=== PATIENT | female | born 1945 | race Caucasian/White ===

== ENCOUNTER → 2020-01-20 | Day surgery (SDC) | payer MEDICARE, BC ==
--- NOTE | 2020-01-19 21:10 | Pre-Procedure Note/Attestation ---
Pre-Procedure Note/Attestation Complete Prior to Procedure Planned Procedure: left - Removal of cataract and placement of intraocular lens, left eye Procedure Narrative: Removal of cataract and placement of intraocular lens, left eye Indications for Procedure Pre-Operative Diagnosis: Cataract, combined, left eye Attestation I attest that I discussed the nature of the procedure; its benefits; risks and complications; and alternatives (and the risks and benefits of such alternatives), prior to the procedure, with the patient (or the patient's legal counter sales representative). I attest that, if there was a reasonable possibility of needing a blood jin sfusion, the patient (or the patient's legal counter sales representative) was given the [facility] standardized written summary, pursuant to the Wilberto Briggs Blood Safety Act ([place] Health and Safety Code # 1645, as amended). I attest that I re-evaluated the patient just prior to the surgery and that there has been no change in the patient's H&P, except as documented below: Kris Osei MD Jan 19, 2020 21:10
[~2020-01-20] VITALS: Ht 160 cm; Wt 114.3 kg
[2020-01-20] VITALS (8 sets, daily range): BP systolic 102–131; BP diastolic 65–88
[~2020-01-20] MED LIST: ALLOPURINOL300 M1 ORAL; ATORVASTATIN CA10 MG ORAL; Akten 3.5% 1ml Btl ONE; B12 ACTIVE1000 MCG PO; BENAZEPRIL HCL10 MG ORAL; BSS 15ml BTL ONE; BSS 500ml btl ONE; COQ-10100 M1 PO; Ciprofloxacin Opth Soln 5ml ONE; EPINEPHrine 1mg/1ml Amp ONE; JANUMET 50-1,01 EACH ORAL; LR 1000ml 1,000 ML IVLG SCH; LR 1000ml ONE; Lidocaine 1% MPF 10mg/ml 5ml ONE; Lidocaine 4% Amp 5ml ONE; MAGNESIUM400 M2 PO; Maxitrol Opth Oint 3.5gm ONE; NS Irrig 1000ml ONE; Phenylephrine 10% Opth Soln 5ml ONE; Povidone-Iodine 5% opth solution ONE; SERTRALINE HCL25 MG ORAL; SPIRONOLACTONE100 MG ORAL; Sodium Hyaluronate 10 mg/ml 0.85ml ONE; Sterile Water Irrig 1000ml IRRIG ONE; Tetracaine 0.5% Opth 4ml Soln ONE; Tobradex Opth Susp 2.5ml ONE; Tropicamide 1% Opth 15ml Soln ONE; VITAMIN D325 MC1 PO; XANAX0.25 MG ORAL; fentaNYL 100 mcg/2 mL IV ONE; prednisoLONE acetate 1% Opth Susp 1ml ONE
[2020-01-20] MEDS: Tobradex Opth Susp 2.5ml LEFT EYE SCH ×3 (08:39→09:03)
[2020-01-20] MEDS: Cyclopentolate 2% Opth Sol LEFT EYE SCH ×3 (08:39→09:03)
[2020-01-20] MEDS: Tropicamide 1% Opth 15ml Soln LEFT EYE SCH ×3 (08:39→09:02)
[2020-01-20] MEDS: Ciprofloxacin Opth Soln 5ml LEFT EYE SCH ×3 (08:39→09:02)
[2020-01-20] MEDS: Akten 3.5% 1ml Btl LEFT EYE SCH ×3 (08:40→09:02)
[2020-01-20] MEDS: Phenylephrine 10% Opth Soln 5ml LEFT EYE SCH ×3 (08:40→09:03)
--- NOTE | 2020-01-20 09:42 | Anethesia Preoperative Eval ---
Anesthesia Pre-op PMH/ROS General Date of Evaluation: Jan 20, 2020 Time of Evaluation: 09:38 Anesthesiologist: Edwin ASA Score: ASA 3 Mallampati Score Class I : Soft palate, uvula, fauces, pillars visible Class II: Soft palate, uvula, fauces visible Class III: Soft palate, base of uvula visible Class IV: Only hard plate visible Mallampati Classification: Class III Surgeon: Sae Diagnosis: L eye cataract Surgical Procedure: Cataract extraction Anesthesia History: none Family History: no anesthesia problems Allergies: Coded Allergies: WALNUT (Verified Adverse Reaction, Mild, "soarness in mouth", 01/19/20) Medications: see eMAR Patient NPO?: Yes Past Medical History Cardiovascular: Reports: HTN; Denies: CAD, [place], valve dz, arrhythmia, other Pulmonary: Reports: JAYNE; Denies: asthma, COPD, other Gastrointestinal/Genitourinary: Reports: GERD; Denies: CRI, ESRD, other Neurologic/Psychiatric: Reports: depression/anxiety; Denies: dementia, CVA, TIA, other Endocrine: Reports: DM, hypothyroidism; Denies: steroids, other HEENT: Denies: cataract (L), cataract (R), glaucoma, [place] (L), [place] (R), other Hematology/Immune: Denies: anemia, DVT, bleeding disorder, other Musculoskeletal/Integumentary: Reports: OA Other: obesity PMH Narrative: as above PSxH Narrative: see H&P Anesthesia Pre-op Phys. Exam Physician Exam Last Vital Signs Date Time Temp Pulse Resp B/P (MAP) Pulse Ox O2 Delivery O2 Flow Rate FiO2 01/20/20 08:46 97.2 89 18 131/88 97 Room Air Constitutional: NAD Neurologic: CN 2-12 intact Cardiovascular: RRR, no M/R/G Respiratory: CTA Gastrointestinal: other - morbid obesity Airway Exam Mallampati Score: Class III MO: limited Neck: short ROM: limited Teeth: missing Dentures: no upper, no lower Anesthesia Pre-op A/P Labs Chemistry Test 01/20/20 09:00 POC Whole Blood Glucose Pending Studies Pre-op Studies: EKG - SR Risk Assessment & Plan Assessment: ASA3 Plan: MAC Status Change Before Surgery: No Reagan Pineda MD Jan 20, 2020 09:42
--- NOTE | 2020-01-20 10:30 | Pre-op HX & Phy Repo 2 SIG ---
DATE OF ADMISSION: 01/20/2020 PRESURGICAL INTERNAL MEDICINE HISTORY AND PHYSICAL REASON FOR EVALUATION: I was asked by Dr. Kris Osei to see this 74-year-old female who is going for elective surgery on the left eye. The patient has nuclear sclerotic cataract, left eye. The patient was examined and chart was reviewed at [facility]. PAST MEDICAL HISTORY AND REVIEW OF SYSTEMS: Remarkable for hypertension, history of adult onset diabetes mellitus, sleep apnea, gout, obesity, and history of bladder cancer. No history of heart attack. No history of mitral valve leak. No renal failure. No anemia or thyroid problem. SURGICAL HISTORY: Umbilical hernia, cholecystectomy, and the right eye cataract, recent. FAMILY HISTORY: Mother from heart attack and father from complication of colon cancer. ALLERGIES: Walnuts. MEDICATIONS: Present medications include benazepril 5 mg, allopurinol, Janumet, and atorvastatin. The patient uses CPAP oxygen machine at home at night 1.5 L/minute. HABITS: The patient smoked 40 years ago for short period of time. Alcohol occasionally. No street drugs. PHYSICAL EXAMINATION: GENERAL: The patient is alert, overweight, elderly female. Weight 245 pounds and 5 feet 3.5 inches tall. VITAL SIGNS: Blood pressure 131/88, pulse 89, respirations 18. O2 saturation 97% on room air. SKIN: Dry, warm, clear. No rashes. No diaphoresis. LYMPHATICS: Lymph nodes not enlarged. HEENT: Head is normocephalic, atraumatic. Ears, clear. Eyes, full description per Dr. Kris Osei. Mouth has dentures, upper and low. NECK: Supple. No jugular venous distention. No palpable mass. CHEST: No deformity or asymmetry. LUNGS: Clear to auscultation and percussion. HEART: Sinus rate. No ectopy. No murmur. No S3 or S4. ABDOMEN: Soft, obese. Liver and spleen not enlarged. No rebound. EXTREMITIES: No edema. No varicose vein. No calf tenderness. GENITOURINARY: No dysuria. No CVA tenderness. NEUROLOGIC: No tremor. No nystagmus. DIAGNOSTIC DATA: EKG - sinus rhythm, ST-T wave abnormality. Laboratory, fasting blood sugar 105 g/dL. Rest of the laboratory pending. IMPRESSION: 1. Nuclear sclerotic cataract, left eye. 2. Type 2 diabetes, controlled. 3. Gout. 4. Hypertension, controlled. 5. Sleep apnea. 6. History of bladder cancer. 7. Obesity. PLAN: Cataract extraction, left eye with intraocular lens implant per Dr. Kris Osei. CONCLUSIONS: The patient is a 74-year-old female with multiple medical problems including diabetes which is controlled, hypertension also controlled. The patient is on CPAP machine at home for sleep apnea. The patient is obese. The patient did not eat or drink from last night. The patient's condition optimized for surgery. Thank you very much, Dr. Osei, for privilege to participate in presurgical care of this interesting patient. Carlee Ryan M.D. DR: JOSE JOB#: [id number] CC:
--- NOTE | 2020-01-20 11:10 | Discharge Instructions ---
Discharge Instructions Discharge Instructions Follow Up Orders Continue pre op eye drops Wear shield at all times except to place eye drops Followup tomorrow in Dr Osei's office For Congestive Heart Failure Reminder Report to your physician any weight gain of 5 pounds or more in one week. Kris Osei MD Jan 20, 2020 11:10
--- NOTE | 2020-01-20 11:13 | Brief Operative Note ---
Immediate Post Operative Note Operative Note Pre-op Diagnosis: Cataract, combined, left eye Procedure: Phaco PC IOL OS Post-op Diagnosis: same as pre-op Surgeon: Paulo Osei MD MS Nut Roaster Helper: none Anesthesiologist: Dr Pineda Anesthesia: local, MAC Specimen: none Complications: none Fluids: see chart Implant(s) used?: Yes - ZCB00 19.0 Kris Osei MD Jan 20, 2020 11:13
--- NOTE | 2020-01-20 11:14 | Immediate Post-Op Evaluation ---
Immediate Post-Op Evalulation Immediate Post-Op Evalulation Procedure: L eye cataract extraction with IOL Date of Evaluation: Jan 20, 2020 Time of Evaluation: 11:13 IV Fluids: 300 Blood Products: none Estimated Blood Loss: none Urinary Output: none Blood Pressure Systolic: 116 Blood Pressure Diastolic: 78 Pulse Rate: 86 Respiratory Rate: 20 O2 Sat by Pulse Oximetry: 98 Temperature (Fahrenheit): 97.6 Pain Score (1-10): 1 Nausea: No Vomiting: No Complications none Patient Status: awake, patent, none Hydration Status: adequate Reagan Pineda MD Jan 20, 2020 11:14
--- NOTE | 2020-01-20 12:05 | 48 Hour Post Anesthesia Eval ---
Post Anesthesia Evaluation Procedure: L eye cataract extraction with IOL Date of Evaluation: Jan 20, 2020 Time of Evaluation: 12:04 Blood Pressure Systolic: 128 0: 68 Pulse Rate: 72 Respiratory Rate: 22 Temperature (Fahrenheit): 97.5 O2 Sat by Pulse Oximetry: 98 Airway: patent Nausea: No Vomiting: No Pain Intensity: 2 Hydration Status: adequate Cardiopulmonary Status: stable Mental Status/LOC: patient returned to baseline Follow-up Care/Observations: n/a Post-Anesthesia Complications: none Follow-up care needed: ready to discharge Reagan Pineda MD Jan 20, 2020 12:05
--- NOTE | 2020-01-20 14:45 | Operative Note - Dictated ---
DATE OF OPERATION: 01/20/2020 SURGEON: Kris Osei MD. NUCLEAR OFFICER SURGEON: None. ANESTHESIOLOGIST: Reagan Pineda MD. ANESTHESIA: Local/standby/monitored anesthesia care. PREOPERATIVE DIAGNOSIS: Cataract, combined, left eye. POSTOPERATIVE DIAGNOSIS: Cataract, combined, left eye. PROCEDURE: 1. Phacoemulsification of cataract, left eye. 2. Placement of posterior chamber intraocular lens, left eye (model ZCB00, power 19.0). SPECIMENS: None. COMPLICATIONS: None. INDICATIONS FOR SURGERY: The patient has had the painless progressive decrease in the visual acuity in the left eye secondary to cataract. The patient understands the risks of surgery including infection, bleeding, need for further surgery, loss of vision, no improvement in vision, loss of the eye, loss of life, glaucoma, retinal detachment, and understands these risks and elects to proceed with surgery. FINDINGS: The patient had +2 to 3 nuclear sclerotic cataract as well as +2 cortical cataract. OPERATIVE NOTE: After informed consent was obtained, the patient was brought into the operating room and placed in supine position. Cardiac and respiratory monitors were attached. A time-out was performed and all criteria were met, and everyone in the room agreed. The left eye was then draped and prepped in a sterile manner for ocular surgery. A lid speculum was placed in the eye. A 1% lidocaine preservative-free was injected at the 3 o'clock limbus. A conjunctiva peritomy from 2:30 to 3:30 was made and dissected posteriorly. Hemostasis was maintained with bipolar cautery. A 2.6 mm limbal incision was made centered approximately 3 o'clock and dissected anteriorly. A paracentesis was made at 5:30 and Shugarcaine was injected into the anterior chamber followed by Healon. The anterior chamber was then entered using a 2.8 mm keratome through the limbal incision. An anterior capsulorrhexis was then performed. Hydrodissection and hydrodelineation of the lens was then performed. The lens was then phacoemulsified using divide and conquer four-quadrant technique. Residual cortical material was then aspirated. Healon was injected into the anterior chamber and capsular bag. The lens was taken from its package, placed into the cartridge and the tip of the cartridge was placed through the limbal incision. The lens was injected into the capsular bag and centered nicely with a Sinskey hook. Healon was aspirated from the anterior chamber and capsular bag. One 10-0 nylon interrupted suture was then placed through the limbal incision. The knot was rotated and buried. All wounds were previously hydrated closed. The wounds were checked and found to be watertight. The conjunctiva was closed with forceps cautery. The intraocular lens was visualized and the optic and both haptics were in the capsular bag centered along the approximate 9 o'clock to 3 o'clock meridian. The conjunctiva was closed with forceps cautery and the lid speculum was removed from the eye and the drapes were removed from the eye and drops of Pred Forte, ciprofloxacin, and TobraDex drops were applied to the eye followed by Maxitrol ointment and a shield. The patient tolerated the procedure well and left the operating room awake, alert, and in stable condition. Kris Osei M.D. DR: FREDIS JOB#: [id number] CC:
== END | disposition home or self-care (01) ==
LOC: SUR 07:46
DX: H25.12 Age-related nuclear cataract, left eye (principal); H25.012 Cortical age-related cataract, left eye; I10 Essential (primary) hypertension; E11.9 Type 2 diabetes mellitus without complications; Z85.51 Personal history of malignant neoplasm of bladder; Z99.81 Dependence on supplemental oxygen; K21.9 Gastro-esophageal reflux disease without esophagitis; G47.33 Obstructive sleep apnea (adult) (pediatric); E03.9 Hypothyroidism, unspecified; F32.9 Major depressive disorder, single episode, unspecified; F41.9 Anxiety disorder, unspecified; E66.01 Morbid (severe) obesity due to excess calories; Z91.018 Allergy to other foods; Z68.41 Body mass index [BMI] 40.0-44.9, adult
CPT/HCPCS: 66984; 82962; 94003; J0171; J1100; J2704; J3010; J7120; U0002; V2632; 94150